=== PATIENT | female | born 1990 | race American Indian/Alaskan Native ===

== ENCOUNTER 2018-02-01 09:11 | Emergency (ER) | payer SELFPAY ==
[2018-02-01] MEDS ORDERED: ULTRAM PO ONE (11:26)
[2018-02-01] MEDS ORDERED: MOTRIN PO ONE (11:26)
--- NOTE | 2018-02-01 11:28 | Emergency Department Report ---
Blank Doc - Documentation Documentation: Patient is a 27-year-old asthmatic female who woke up in the middle of the night to go to the restroom and actually fell down stairs. She states was approximately 10-15 stairs. The patient denies any head injury or loss of consciousness. Patient is complaining of some bilateral trapezius discomfort but midline L-spine tenderness. On physical exam she does have some mild tenderness along the bilateral traps right greater than left but does have midline tenderness at the upper L-spine. Patient will have x-rays of the C- spine and L-spine and the patient be reassessed.
--- NOTE | 2018-02-01 11:59 | Emergency Department Report ---
ED Fall HPI - General Chief Complaint: Fall Stated Complaint: FELL DOWN STEPS Time Seen by Provider: 02/01/18 11:24 Source: patient Mode of arrival: Ambulatory - History of Present Illness Initial Comments: Patient is a 27-year-old asthmatic female who woke up in the middle of the night to go to the restroom and actually fell down stairs. She states was approximately 10-15 stairs. The patient denies any head injury or loss of consciousness. Patient is complaining of some bilateral trapezius discomfort but midline L-spine tenderness. Patient reports that pain is 10/10 and achy. No medication taken preference emergency room. She denies any numbness or tingling to her extremities and denies any loss of bowel or bladder function. Pain is constant. Denies any bruises or swelling on her skin. Pain is worse with movement. MD Complaint: fall -: This morning Fall From: standing When Fall Occurred: 4-[address] Fall Occurred: home Loss of Consciousness: none Prolonged Down Time?: no Symptoms Prior to Fall: none Location: back Severity: severe Severity scale (0 -10): 10 Quality: aching Context: tripped/slipped (down stairs) Associated Symptoms: neck pain. denies: headache, numbness, weakness, chest paint, shortness of breath, abdominal pain, hematuria, unable to walk, lightheaded, vertigo, confusion - Related Data Previous Rx's Medication Instructions Recorded Last Taken Type Cyclobenzaprine [Flexeril 10mg] 10 mg PO Q12H PRN #14 tablet 02/01/18 Unknown Rx Ibuprofen [Motrin] 800 mg PO Q8HR PRN #15 tablet 02/01/18 Unknown Rx Allergies Allergy/AdvReac Type Severity Reaction Status Date / Time No Known Allergies Allergy Unverified 02/01/18 09:16 ED Review of Systems ROS: Stated complaint: FELL DOWN STEPS Other details as noted in HPI Constitutional: denies: chills, fever Eyes: denies: eye pain, vision change ENT: denies: epistaxis Respiratory: denies: cough, shortness of breath, wheezing Cardiovascular: denies: chest pain, palpitations Gastrointestinal: denies: nausea, vomiting Genitourinary: denies: urgency, dysuria, discharge Musculoskeletal: back pain, arthralgia. denies: joint swelling, myalgia Skin: denies: rash, lesions Neurological: denies: headache, weakness, numbness, paresthesias, confusion, abnormal gait, vertigo ED Past Medical Hx - Past Medical History Previous Medical History?: No - Surgical History Past Surgical History?: No - Family History Family history: no significant - Social History Smoking Status: Current Every Day Smoker Substance Use Type: None - Medications Home Medications: Home Medications Medication Instructions Recorded Confirmed Last Taken Type Cyclobenzaprine [Flexeril 10mg] 10 mg PO Q12H PRN #14 tablet 02/01/18 Unknown Rx Ibuprofen [Motrin] 800 mg PO Q8HR PRN #15 tablet 02/01/18 Unknown Rx ED Physical Exam - General Limitations: No Limitations General appearance: alert, in no apparent distress - Head Head exam: Present: atraumatic, normocephalic, normal inspection - Expanded Head Exam Expanded Head exam: Absent: laceration, abrasion, contusion, hematoma, racoon eyes, bellamy's sign, general tenderness, tenderness of temporal artery, CSF rhinorrhea , CSF otorrhea - Eye Eye exam: Present: normal appearance, PERRL, EOMI. Absent: nystagmus Pupils: Present: normal accommodation - ENT ENT exam: Present: normal exam, mucous membranes moist - Neck Neck exam: Present: normal inspection, full ROM, other (no C-spine tenderness). Absent: tenderness, lymphadenopathy, thyromegaly - Expanded Neck Exam Expanded Neck exam: Absent: tenderness, anterior neck swelling, tracheal deviation - Respiratory Respiratory exam: Present: normal lung sounds bilaterally. Absent: respiratory distress, chest wall tenderness - Cardiovascular Cardiovascular Exam: Present: regular rate, normal rhythm, normal heart sounds - GI/Abdominal GI/Abdominal exam: Present: soft, normal bowel sounds. Absent: tenderness - Extremities Exam Extremities exam: Present: normal inspection, full ROM, normal capillary refill , other (No cce. + 2 pulses in all extremities, no neurovascular compromise). Absent: tenderness, pedal edema, joint swelling, calf tenderness - Back Exam Back exam: Present: normal inspection, full ROM, tenderness (bilateral upper back I greater than left), paraspinal tenderness (bilateral upper and right), vertebral tenderness (lumbar spine), other (ambulates without any difficulties) . Absent: CVA tenderness (R), CVA tenderness (L), muscle spasm, rash noted - Expanded Back Exam Expanded Back exam: Absent: saddle anesthesia Back exam: Negative Straight Leg Raising: Left, Right - Neurological Exam Neurological exam: Present: alert, oriented X3, reflexes normal, other (no focal neurological deficit). Absent: motor sensory deficit - Psychiatric Psychiatric exam: Present: normal affect, normal mood - Skin Skin exam: Present: warm, dry, intact, normal color. Absent: rash ED Course Vital Signs 02/01/18 02/01/18 09:16 11:33 Temperature 98.2 F Pulse Rate 88 Respiratory 18 15 Rate Blood Pressure 119/81 O2 Sat by Pulse 99 Oximetry - Reevaluation(s) Reevaluation #1: 02/01/18 13:35 Patient given tramadol 50 mg by mouth and Motrin 800 mg by mouth and emergency room she said brought her pain down to 4/10. ED Medical Decision Making - Radiology Data Radiology results: image reviewed X-ray of L-spine and C-spine done. X-ray films reviewed by Dr. Hunt and no acute findings. Still awaiting radiology final report. - Medical Decision Making This is a 19-year-old female here after falling down stairs. She is reporting pain to her upper or lower back. Diagnostics: X-ray of C-spine and L-spine dictated by radiologist and report reviewed by myself. No acute findings. Please refer to radiology section for details. Assessment/plan 1: Lower/upper back pain status post accidental fall down stairs-better with Motrin 800 mg by mouth and Tylenol milligrams by mouth Discussed the patient her results of neck and back x-rays and she voiced understanding. I discussed with her she continues to have pain she is to follow -up with orthopedic doctor in 3 days. Rice therapy explained and she voiced understanding. Patient is stable. Educated on medication and discharged home in stable condition with prescription for Flexeril and Motrin.VSS, afeb. pain better - Differential Diagnosis FX, subluxation, strain, musculoskeletal pain Critical care attestation.: If time is entered above; I have spent that time in minutes in the direct care of this critically ill patient, excluding procedure time. ED Disposition Clinical Impression: Back strain Qualifiers: Encounter type: initial encounter Qualified Code(s): S39.012A - Strain of muscle, fascia and tendon of lower back, initial encounter Back pain Qualifiers: Back pain location: low back pain Chronicity: acute Back pain laterality: midline Sciatica presence: without sciatica Qualified Code(s): M54.5 - Low back pain Accidental fall Qualifiers: Encounter type: initial encounter Qualified Code(s): W19.XXXA - Unspecified fall, initial encounter Disposition: DC-01 TO HOME OR SELFCARE Is pt being admited?: No Does the pt Need Aspirin: No Condition: Stable Instructions: Muscle Strain (ED), Back Pain (ED), Fall Prevention (ED) Additional Instructions: Please follow up with orthopedic doctor in 3 days. See discharge instruction in Rice therapy Take Motrin for pain and Flexeril for back strain but please do not drive or operate heavy machinery while taking Flexeril as it can cause drowsiness Symptoms worsens, return to the emergency room. Referrals: PRIMARY CAREMD [Primary Care Provider] - 02/04/18 CHRISTY SAMANIEGO MD [Staff Physician] - 02/04/18 Forms: Work/School Release Form(ED)
--- NOTE | 2018-02-01 13:35 | XRay Report ---
CERVICAL SPINE, 3 views: History: Fall injury. Findings: The vertebral bodies, disk spaces, posterior elements and prevertebral soft tissues are unremarkable. The dens is intact. No acute fracture or malalignment is identified. Impression: 1. No evidence for acute injury to the cervical spine.
--- NOTE | 2018-02-01 13:36 | XRay Report ---
LUMBOSACRAL SPINE, 3 VIEWS: History: Fall injury Findings: The vertebral bodies, disk spaces and posterior elements are intact. No compression deformity or malalignment. The SI joints are symmetric and unremarkable. Impression: 1. No evidence for acute injury to the lumbar spine.
[2018-02-01 13:50] VITALS: BP 113/74
== END 2018-02-01 13:50 | disposition home or self-care (01) ==
LOC: ED 09:11
DX: S39.012A Strain of muscle, fascia and tendon of lower back, initial encounter (principal); F17.200 Nicotine dependence, unspecified, uncomplicated; M54.2 Cervicalgia; W01.0XXA Fall on same level from slipping, tripping and stumbling without subsequent striking against object, initial encounter; Y93.01 Activity, walking, marching and hiking; Y99.8 Other external cause status; Y92.018 Other place in single-family (private) house as the place of occurrence of the external cause
CPT/HCPCS: 72040; 72100; 99283